=== PATIENT | female | born 1990 | race Caucasian/White ===

== ENCOUNTER → 2017-06-27 | Outpatient (CLI) | payer OTHER | END | disposition home or self-care (01) | LOC: C.LABSPEC 15:46 | PROVIDERS: ATTEND Obstetrics & Gynecology | DX: Z34.01 Encounter for supervision of normal first pregnancy, first trimester (principal) ==

== ENCOUNTER → 2017-07-05 | Outpatient (CLI) | payer OTHER ==
[2017-07-05 16:33] LABS: BASO % 0.3 %; BASO ABS # 0.02 K/uL (0-0.2); EOS % 0.4 %; EOS ABS # 0.03 K/uL (0-0.5); HEMATOCRIT 37.2 % (37-47); HEMOGLOBIN 12.9 g/dL (12.0-16.0); IG# 0.01 K/uL (0.00-0.02); LYMPH % 21.3 %; MEAN CELL VOLUME 90.3 fL (80-100); MEAN CORPUSCULAR HEMOGLOBIN 31.3 pg (25-34); MEAN CORPUSCULAR HGB CONC 34.7 g/dl (32-36); MEAN PLATELET VOLUME 9.1 fL (7.4-10.4); MONO % 3.8 %; NEUT % 74.1 %; NEUT ABS # 5.91 K/uL (1.4-6.5); PLATELET COUNT 300 K/uL (130-400); RED CELL DISTRIBUTION WIDTH CV 12.1 % (11.5-14.5); RED CELL DISTRIBUTION WIDTH SD 39.9 fL (36.4-46.3); WHITE BLOOD COUNT 7.97 K/uL (4.8-10.8)
== END | disposition home or self-care (01) ==
LOC: C.LAB1850 15:22
PROVIDERS: ATTEND Obstetrics & Gynecology
DX: Z34.01 Encounter for supervision of normal first pregnancy, first trimester (principal)

== ENCOUNTER → 2017-07-05 | Outpatient (CLI) | payer OTHER | END | disposition home or self-care (01) | LOC: C.PAPS 07:48 | PROVIDERS: ATTEND Obstetrics & Gynecology | DX: Z12.4 Encounter for screening for malignant neoplasm of cervix (principal) ==

== ENCOUNTER → 2017-08-23 | Outpatient (CLI) | payer OTHER | END | disposition home or self-care (01) | LOC: C.LAB1850 16:23 | PROVIDERS: ATTEND Obstetrics & Gynecology | DX: Z34.02 Encounter for supervision of normal first pregnancy, second trimester (principal) ==

== ENCOUNTER → 2017-11-15 | Outpatient (CLI) | payer OTHER ==
[2017-11-15 17:41] LABS: HEMATOCRIT 34.9 % (37-47); HEMOGLOBIN 11.4 g/dL (12.0-16.0)
== END | disposition home or self-care (01) ==
LOC: C.LAB1850 15:53
PROVIDERS: ATTEND Obstetrics & Gynecology
DX: Z34.03 Encounter for supervision of normal first pregnancy, third trimester (principal); Z3A.00 Weeks of gestation of pregnancy not specified

== ENCOUNTER 2023-08-19 09:48 | Inpatient (IN) ==
[2023-08-19 11:00] LABS: Appearance Urine Clear (Clear); Bacteria Urine Automated 1+ (None Seen); Bilirubin Urine Negative (Negative); Blood Urine Negative (Negative); Cast Urine Automated 0-2 /lpf (0-2); Color Urine Yellow; Glucose Urine UA Negative (Negative); Ketones Urine Negative (Negative); Leukocyte Esterase Urine Negative (Negative); Nitrite Urine Negative (Negative); Protein Urine Trace (Negative); RBC Urine Automated 0-2 /hpf (0-2); Specific Gravity Urine 1.009 (1.000-1.030); Urobilinogen Urine Negative (Negative); WBC Urine Automated 0-5 /hpf (0-5); pH Urine 5.5 (4.5-7.5)
[2023-08-19 11:04] LABS: Basophils # (auto) 0.02 K/uL (0.00-0.20); Basophils % (auto) 0.2 %; Eosinophils # (auto) 0.06 K/uL (0.00-0.50); Eosinophils % (auto) 0.7 %; Hematocrit (blood only) 35.5 % (37.0-47.0); Hemoglobin 12.1 g/dl (12.0-16.0); Immature Granulocytes # (auto) 0.05 K/uL (0.01-0.20); Immature Granulocytes % (auto) 0.6 %; Lymphocytes # (auto) 1.76 K/uL (1.20-3.40); Mean Corpuscular Hemoglobin 30.9 pg (25.0-34.0); Mean Corpuscular Hgb Conc 34.1 g/dL (32.0-36.0); Mean Corpuscular Volume 90.8 fL (80.0-100.0); Mean Platelet Volume 10.1 fL (9.4-12.4); Monocytes # (auto) 0.34 K/uL (0.11-0.59); Monocytes % (auto) 4.1 %; Neutrophils # (auto) 6.15 K/uL (1.40-6.50); Neutrophils % (auto) 73.4 %; Platelet Count 276 K/uL (130-400); RDW Coefficient of Variation 13.4 % (11.5-14.5); RDW Standard Deviation 43.9 fL (36.4-46.3); Red Blood Count 3.91 M/uL (4.20-5.40); White Blood Count 8.38 K/ul (4.8-10.8)
[2023-08-19 11:35] LABS: Albumin Globulin Ratio 1.1 (0.9-2); Albumin Level 3.3 gm/dl (3.4-5.0); BUN Creatinine Ratio 15.8 (10-20); Bilirubin,Total 0.4 mg/dl (0.2-1.0); Calcium 8.7 mg/dl (8.6-10.3); Creatinine Clr Calc Pharmacy 153.5 ml/min; Est GFR (African American) 140.2 ml/min; Potassium 3.8 mmol/L (3.5-5.1); Total Protein 6.3 gm/dl (6.0-8.3)
[2023-08-19] MEDS ORDERED: LIDOCAINE 1% LOCAL 20 ML VIAL INFIL PRN (12:05)
--- NOTE | 2023-08-19 13:04 | Obstetrical Progress Note ---
Date of Service August 19, 2023 Assessment & Plan Admission and Anticipated Discharge Date Admission Date: August 19, 2023 Subjective Reviewed blood pressures and labs with patient and with Dr. Muniz who is on- call today I am covering labor and delivery now meets criteria for elevated ranges to induce labor cervical Morales placed under sterile technique a cervical is long thick and closed Pitocin started we will give nifedipine x 1 dose at this stage may need magnesium sulfate but will watch for the moment as is only had borderline to severe blood pressures at this stage Results & Data Vital Signs (Past 12 Hours) Vital Signs Temp Pulse BP 08/19/23 12:37 112 H 08/19/23 12:37 162/100 H 08/19/23 11:49 107 H 08/19/23 11:49 164/104 H 08/19/23 11:33 116 H 08/19/23 11:33 158/105 H 08/19/23 11:19 117 H 08/19/23 11:19 148/98 H 08/19/23 11:03 121 H 08/19/23 11:03 159/96 H 08/19/23 10:49 123 H 08/19/23 10:49 172/104 H 08/19/23 10:20 98.4 F 08/19/23 10:03 126 H 156/98 H PG Care Time/CCT Total # of Minutes Spent Total Time Spent with Patient: Total time spent is greater than 50% in coordination of care (as documented) at patient's floor/unit and/or counseling patient: Coding Level of Care Code None
--- NOTE | 2023-08-19 13:04 | History & Physical Report ---
Date of Service August 19, 2023 Assessment & Plan (1) Encounter for supervision of normal in multigravida: (2) Pre-eclampsia in third trimester: (3) Encounter for induction of labor: Plan Pt is a 32 yo at 38 5/7 WGA presenting to labor and delivery for induction d/t preeclampsia with severe criteria pressures. Blood type; O+, GBS negative, rubella immune External FHT and external uterine monitors used; Category I tracing; moderate FHT variability. Plan to start oxytocin and rupture membranes later if necessary. Cervical clay placed. Proceed with labor and plan for vaginal delivery. Admission and Anticipated Discharge Date Admission Date: August 19, 2023 History of Present Illness Chief Complaint: Induction, preeclampsia with severe features Primary Care Provider: NO PCP Pt is a 32 y/o female currently at 38 5/7 WGA with an ALLI of 08/28/23 as determined by LMP who is here for induction due to preeclampsia with pressures meeting severe criteria. Her was otherwise uncomplicated by. Some irregular contractions; + movement; - fluid loss; - bloody show. Overall feeling nervous today but excited to have baby. States she has had a headache the last few days, did also have some floaters a few days ago that have since resolved. Otherwise feeling well. No questions or complaints at this time. Had regular appointments with OB. OB Labs: Blood Type O Positive 01/21/23 Antibody Screen NEGATIVE 01/21/23 Hemoglobin 11.7 g/dl (12.0-16.0) L 08/05/23 Hematocrit 34.8 % (37.0-47.0) L 08/05/23 Mean Corpuscular Volume 92.3 fL (80.0-100.0) 08/05/23 Platelet Count 264 K/uL (130-400) 08/05/23 Rubella IgG Antibody Immune (Immune) 01/21/23 Rapid Plasma Reagin Nonreactive (Nonreactive) 01/21/23 Hepatitis B Surface Antigen NEG (NEG) 07/05/17 Hepatitis B Surface Antigen. NON-REACTIVE (NON-REACTIVE) 01/21/23 Hepatitis C Antibody (EIA) NON-REACTIVE (NON-REACTIVE) 01/21/23 HIV (1&2) Ab and P24 Ag, 4th Gener NEG (NEG) 07/05/17 HIV (1&2) Ag and Ab Confirmation NON-REACTIVE (NON-REACTIVE) 01/21/23 Glucose 1 Hour 50 gm Load 123 mg/dl (70-130) 06/10/23 OB Optional Labs: Chlamydia trachomatis RNA Not Detected (NotDetected) 01/21/23 Neisseria gonorrhoeae RNA Not Detected (NotDetected) 01/21/23 Labs Reviewed: Declines genetics--mln Allergies Allergy/AdvReac Type Severity Reaction Status Date / Time Penicillins Allergy Hives Verified 08/19/23 09:16 Sulfa (Sulfonamide Allergy Hives Verified 08/19/23 09:16 Antibiotics) vancomycin Allergy Anaphylaxis Verified 08/19/23 09:16 Home Medications Medication Instructions Recorded Confirmed Type vitamins-iron fumarate 27 1 tab PO DAILY 02/10/18 08/19/23 History mg iron-folic acid 0.8 mg tablet ( Vitamin) ferrous sulfate [Iron (ferrous 325 mg PO 3XWK 06/24/23 08/19/23 History sulfate)] Patient History Medical History (Updated 08/19/23 @ 13:08 by Hannah Castellanos DO) History of chicken pox Acid reflux Surgical History History of eye surgery [place] teeth extracted Family History (Updated 01/10/23 @ 09:57 by Michelle Cuevas) Grandmother (Paternal) Breast cancer Grandmother (Maternal) Dementia Diabetes Grandfather (Maternal) Diabetes Denies family history of Ovarian cancer Colorectal cancer Social History (Updated 01/10/23 @ 09:58 by Michelle Cuevas) Smoking Status: Never smoker Second Hand Exposure: No; Do You Dip or Chew Tobacco: No; Tobacco Cessation Education Requested by Patient: No Hx Alcohol Use: No Hx Substance Use: No Preferred Language: Israeli Communication Ability: Effective D[employer] Required: No Beliefs That Will Affect Care: None marital status: Single marital status details: ephraim Leroy [place] [phone] Current Living Situation: Significant Other Current Living Situation Comment: lives with fob, son, dogs, cat-fob changing litter current occupational status: employed current occupation: [employer] Other Information That Helps Us Care for You: No Feels Safe at Home: Yes Safety Concerns: Feels Safe At This Time Assistive Devices: None Review of Systems no fever, no chills and no sweats no dyspnea no difficulty breathing no chest pain and no palpitations no dysuria no headache(s) no changes in vision no breast pain Physical Exam Physical Exam: General: Alert, oriented. No acute distress. Cardiac: Regular rate and rhythm, no murmurs, gallops, or rubs. Respiratory: Clear to auscultation bilaterally a/p, no wheezes, rales, or rhonch i. No increased work of breathing. No respiratory distress. Abdomen: Gravid, Position: vertex Pelvic: Per Dr. Duarte. Lower extremities: Some bilateral pitting edema noted, 1+. No deep calf pain. Ho man's negative bilaterally. Results & Data Vital Signs (Past 12 Hours) Vital Signs Temp Pulse BP 08/19/23 12:37 112 H 08/19/23 12:37 162/100 H 08/19/23 11:49 107 H 08/19/23 11:49 164/104 H 08/19/23 11:33 116 H 08/19/23 11:33 158/105 H 08/19/23 11:19 117 H 08/19/23 11:19 148/98 H 08/19/23 11:03 121 H 08/19/23 11:03 159/96 H 08/19/23 10:49 123 H 08/19/23 10:49 172/104 H 08/19/23 10:20 36.9 C 08/19/23 10:03 126 H 156/98 H Supervising Physician Co-Signing Physician Notes Resident Physician Supervision Note: I interviewed and examined the patient. Discussed with Dr. Castellanos and agree with findings and plan as documented in the note. Any exceptions or clarifications are listed here: 32yo @ 38 08/15, IOL for preeclampsia. Treated with 1 dose PO procardia. Blood work negative. Clay bulb placed per eddi Red for IOL. Documented By: Marisela Duarte DO Resident Activity Tracking Resident Involvement: Resident Care Provided Care Provided: OB Delivery
[2023-08-19] MEDS: NIFEdipine 10 MG CAP PO STA (13:20)
[2023-08-19] MEDS: LACTATED RINGER'S 1,000 ML IV PRN (13:22)
[2023-08-19] MEDS: OXYTOCIN 30 UNITS/NSS 30 UNITS/500 ML BAG IV PRN (13:22)
[2023-08-19] MEDS: ACETAMINOPHEN 325 MG TAB PO PRN (14:51)
[2023-08-19] MEDS: BUTORPHANOL TARTRATE 1 MG/ML VIAL IV PRN (17:24)
--- NOTE | 2023-08-19 18:41 | Labor Progress Brief Note ---
Date of Service August 19, 2023 Subjective Headache - offered headache cocktail (tylenol, reglan, benadryl). She will think about this and request it if she desires treatment. FHT Cat 1 [place] Q 2-3 SVE /-2 AROM pink tinged fluid. Assessment & Plan Admission and Anticipated Discharge Date Admission Date: August 19, 2023 Results & Data Vital Signs (Past 12 Hours) Vital Signs Temp Pulse Resp BP 08/19/23 18:25 104 H 08/19/23 18:25 147/95 H 08/19/23 17:24 111 H 08/19/23 17:24 140/90 08/19/23 16:25 121 H 08/19/23 16:25 138/93 08/19/23 15:24 113 H 08/19/23 15:24 140/87 08/19/23 15:00 18 08/19/23 15:00 37.1 C 18 08/19/23 14:25 125 H 08/19/23 14:25 131/74 08/19/23 13:08 96 H 08/19/23 13:08 151/93 H 08/19/23 12:37 112 H 08/19/23 12:37 162/100 H 08/19/23 11:49 107 H 08/19/23 11:49 164/104 H 08/19/23 11:33 116 H 08/19/23 11:33 158/105 H 08/19/23 11:19 117 H 08/19/23 11:19 148/98 H 08/19/23 11:03 121 H 08/19/23 11:03 159/96 H 08/19/23 10:49 123 H 08/19/23 10:49 172/104 H 08/19/23 10:20 36.9 C 08/19/23 10:03 126 H 156/98 H Coding Level of Care Code None
[2023-08-19] MEDS ORDERED: METOCLOPRAMIDE HCL 10 MG TABLET PO PRN (20:07)
[2023-08-19] MEDS ORDERED: ACETAMINOPHEN 500 MG TAB PO PRN (20:07)
[2023-08-19] MEDS ORDERED: diphenhydrAMINE 50 MG/ML VIAL IV PRN (20:07)
[2023-08-20] MEDS: OXYTOCIN 30 UNITS/NSS 30 UNITS/500 ML BAG IV PRN (00:37)
--- NOTE | 2023-08-20 00:39 | Delivery Summary ---
Vaginal Delivery Summary Date of Service August 20, 2023 Vaginal Delivery Summary and 1st Degree LAC Vaginal Delivery Summary: Pre-delivery diagnoses: 32yo @ 38 6/7, preeclampsia Post-delivery diagnoses: same Procedure: spontaneous vaginal delivery Surgeon: Marisela Duarte DO Complications: none Findings: Viable female . Apgars: 8/9 . Weight pending, please see nursery records Estimated blood loss: QBL 162 Description of delivery: The patient progressed to complete without anesthesia. She then began to push. She spontaneously vaginally delivered a viable from the cephalic presentation. The head delivered in EDUARDO position. Nuchal x 1, easily reduced. Patient was repositioned using McRobert's maneuver, which allowed anterior shoulder to be delivered, right compound hand noted and delivered, which allowed for delivery of posterior shoulder, followed by the body. The baby was placed on mother's abdomen and a spontaneous cry was heard. The cord was doubly clamped and cut. A segment was retained for cord gases. Cord blood was obtained. The placenta was delivered spontaneously intact with a 3-vessel cord. The uterus and vagina were swept of clots and debris. IV pitocin was given. The uterus became firm. The cervix, vagina, and perineum were inspected and a hemostatic 1st degree perineal laceration was noted - hemostatic, patient elected against repair. Excellent hemostasis was observed. The mother and baby are recovering in stable and good condition in the room. Sponge and instrument counts were correct x 2. Marisela Duarte DO [facility] [place] Vaginal Delivery Charge Delivery Type Details: and 1st Degree LAC
[2023-08-20] MEDS ORDERED: HYDROCORTISONE ACETATE 25 MG SUPP PR PRN (01:08)
[2023-08-20] MEDS ORDERED: oxyCODONE/ACETAMINOPHEN 5mg/325mg TAB PO PRN (01:08)
[2023-08-20] MEDS ORDERED: ACETAMINOPHEN 325 MG TAB PO PRN (01:08)
[2023-08-20] MEDS ORDERED: IBUPROFEN 600 MG TAB PO PRN (01:08)
[2023-08-20] MEDS ORDERED: bisacodyL 10 MG SUPP PR PRN (01:08)
[2023-08-20] MEDS ORDERED: OXYTOCIN 30 UNITS/NSS 30 UNITS/500 ML BAG IV PRN (01:08)
[2023-08-20] MEDS: DIPHTHER/TETAN/PERTUS Vaccine (Tdap, Adol/Adult) 0.5mL IM ONE (01:43)
[2023-08-20] MEDS: BENZOCAINE 20% SPRY 85 APPLN/85 GM CAN EXT PRN (03:01)
[2023-08-20 07:22] LABS: Hematocrit (blood only) 32.9 % (37.0-47.0); Mean Corpuscular Hemoglobin 31.3 pg (25.0-34.0); Mean Corpuscular Hgb Conc 33.4 g/dL (32.0-36.0); Mean Corpuscular Volume 93.5 fL (80.0-100.0); Mean Platelet Volume 9.9 fL (9.4-12.4); Platelet Count 259 K/uL (130-400); RDW Coefficient of Variation 13.6 % (11.5-14.5); RDW Standard Deviation 45.7 fL (36.4-46.3); Red Blood Count 3.52 M/uL (4.20-5.40); White Blood Count 13.27 K/ul (4.8-10.8)
[2023-08-20] MEDS: PRENATAL VITAMIN 1 TAB PO SCH (07:55)
[2023-08-20] MEDS: DOCUSATE SODIUM 100 MG CAP PO SCH (07:55)
[2023-08-20 08:02] LABS: Albumin Globulin Ratio 1.1 (0.9-2); Albumin Level 3.2 gm/dl (3.4-5.0); Bilirubin,Total 0.6 mg/dl (0.2-1.0); Calcium 8.4 mg/dl (8.6-10.3); Creatinine Clr Calc Pharmacy 145.8 ml/min; Est GFR (African American) 137.8 ml/min; Est GFR (Non-African American) 118.9 ml/min; Globulin 2.9 gm/dl (2.5-4.0); Potassium 4.2 mmol/L (3.5-5.1); Total Protein 6.1 gm/dl (6.0-8.3)
--- NOTE | 2023-08-21 07:26 | Obstetrical Progress Note ---
Date of Service August 21, 2023 Assessment & Plan (1) Encounter for induction of labor: day #2 preeclampsia patient's blood pressures are significantly better she is asymptomatic and wishes to go home she has no extremity pain no heavy bleeding no headache she is breast-feeding no depression we will plan on discharge later today Subjective Ambulation: ambulating normally Voiding: no voiding problems Passing Gas:: Yes Diet Tolerance:: regular diet Lochia:: Small Physical Exam Constitutional WD/WN, vitals as above well developed and well nourished Respiratory normal respiratory effort, lungs clear to auscultation normal respiratory effort Cardiovascular RRR, no murmur, no edema Gastrointestinal (Abdomen) normal bowel sounds, soft, nontender, no hepatosplenomegaly Results & Data Vital Signs (Past 12 Hours) Vital Signs Temp Pulse Resp BP Pulse Ox O2 Del Method 08/21/23 00:10 97.5 F L 89 20 130/84 97 Room Air 08/20/23 19:55 97.9 F 88 18 119/80 96 Room Air
[2023-08-21] MEDS ORDERED: bisacodyL 5 MG TABEC PO SCH (20:00)
== END 2023-08-21 12:47 | disposition home or self-care (01) | DRG 807 ==
LOC: OPB 09:48 → 4S1 09:50 → 4E2 14:34 → 4S1 14:38 → 4E2 08-20 03:52